=== PATIENT | female | born 1995 | race Caucasian/White ===

== ENCOUNTER 2017-10-28 08:24 | Emergency (ER) | payer OTHER ==
[2017-10-28 08:38] VITALS: BP 131/60; PULSE 85; TEMP 98; BMI 46.0
--- NOTE | 2017-10-28 09:46 | PDOC ---
History of Present Illness - General Chief Complaint: Rectal Bleed Stated Complaint: RECTAL BLEEDING Time Seen by Provider: 10/28/17 09:11 History Source: Patient Exam Limitations: No Limitations - History of Present Illness Initial Comments: 10/28/17 09:33 Patient is a 22F with history of prior gonorrhea infection here today complaining of rectal bleeding and pelvic pain. She states that the rectal pain started after shaving several days ago. She states that the pain is worse with defecation and that she had bright red blood in the toilet bowl this morning, which prompted her to come in to the ED. Patient states that she has also had white vaginal discharge for the past two days with some pelvic pain. Denies abdominal pain. Denies pain with urination. Denies fevers, chills, nausea and vomiting. Past History - Past Medical History Allergies/Adverse Reactions: Allergies Allergy/AdvReac Type Severity Reaction Status Date / Time No Known Allergies Allergy Verified 10/28/17 08:35 - Suicide/Smoking/Psychosocial Hx Smoking History: Never smoked Review of Systems - Review of Systems Able to Perform ROS?: Yes Comments:: 10/28/17 10:07 GENERAL/CONSTITUTIONAL: No fever or chills. No weakness. HEAD, EYES, EARS, NOSE AND THROAT: No change in vision. No sore throat. CARDIOVASCULAR: No chest pain or shortness of breath RESPIRATORY: No cough, wheezing, or hemoptysis. GASTROINTESTINAL: No nausea, vomiting, diarrhea or constipation. GENITOURINARY: No dysuria, frequency, or change in urination. Positive for vaginal discharge and pelvic pain. MUSCULOSKELETAL: No joint or muscle swelling or pain. No neck or back pain. SKIN: No rash NEUROLOGIC: No headache, vertigo, loss of consciousness, or change in strength/ sensation. HEMATOLOGIC/LYMPHATIC: No anemia, easy bleeding, or history of blood clots. ALLERGIC/IMMUNOLOGIC: No hives or skin allergy *Physical Exam - Vital Signs Last Vital Signs Temp Pulse Resp BP Pulse Ox 98 F 85 18 131/60 100 10/28/17 08:35 10/28/17 08:35 10/28/17 08:35 10/28/17 08:35 10/28/17 08:35 - Physical Exam Comments: 10/28/17 10:07 GENERAL: Awake, alert, and fully oriented, in no acute distress HEAD: No signs of trauma, normocephalic, atraumatic EYES: PERRLA, EOMI, sclera anicteric, conjunctiva clear ENT: Auricles normal inspection, hearing grossly normal, nares patent, oropharynx clear without exudates. Moist mucosa NECK: Normal ROM, supple, no lymphadenopathy, JVD, or masses LUNGS: No distress, speaks full sentences, clear to auscultation bilaterally HEART: Regular rate and rhythm, normal S1 and S2, no murmurs, rubs or gallops, peripheral pulses normal and equal bilaterally. ABDOMEN: Soft, nontender, normoactive bowel sounds. No guarding, no rebound. No masses EXTREMITIES: Normal inspection, Normal range of motion, no edema. No clubbing or cyanosis. NEUROLOGICAL: Cranial nerves II through XII grossly intact. Normal speech, normal gait, no focal sensorimotor deficits SKIN: Warm, Dry, normal turgor, no rashes or lesions noted. PELVIC: Normal external genitalia, white cottage cheese discharge, no CMT, no adnexal masses RECTAL: Linear abrasion at 12 o'clock, tender, no masses or stool, positive for small amount of bright red blood Moderate Sedation - Procedure Monitoring Vital Signs: Vital Signs Temp Pulse Resp BP Pulse Ox 98 F 85 18 131/60 100 10/28/17 08:35 10/28/17 08:35 10/28/17 08:35 10/28/17 08:35 10/28/17 08:35 Medical Decision Making - Medical Decision Making 10/28/17 11:28 Patient is 22F with history of gonorrhea here today with yeast infection. Also working up for UTI and . G/C tests sent. Nontender abdominal exam, no cva tenderness. Will treat yeast infection with fluconazole. Rectal bleeding is due to abrasion. Will recommend fiber supplementation, sitz bath, improved bowel habits and stool softener. UA/Upreg pending. 10/28/17 12:38 Laboratory Tests 10/28/17 11:45 Ur Leukocyte Esterase 1+ H Urine WBC (Auto) 17 Urine HCG, Qual Negative UA positive, upreg negative. Will discharge home with return precautions. *DC/Admit/Observation/Transfer Diagnosis at time of Disposition: Yeast infection involving the vagina and surrounding area, Anal fissure - Discharge Dispostion Disposition: HOME Condition at time of disposition: Good Decision to Admit order: No - Referrals Referrals: Roland Joyce MD [Primary Care Provider] - - Patient Instructions Printed Discharge Instructions: DI for Rectal Bleeding, DI for Vaginal Yeast Infection Additional Instructions: Please return if you have any new, worsening or concerning symptoms. You were prescribed an antibiotic today. Please take your next dose tonight. Please take the entire prescription even if you feel better. Please follow up with your primary care provider in the next week. - Post Discharge Activity
[2017-10-28] MEDS ORDERED: ACETAMINOPHEN 325 MG TABLET (FP) PO ONE (10:43)
--- NOTE | 2017-10-28 11:23 | PDOC ---
Attending Attestation - Resident Resident Name: Jerry Smith - ED Attending Attestation I have performed the following: I have examined & evaluated the patient, The case was reviewed & discussed with the resident, I agree w/resident's findings & plan, Exceptions are as noted - HPI HPI: 10/28/17 11:19 22-year-old female patient with history of gonorrhea, obesity presents with pelvic pain and some rectal bleeding. The patient reported several days ago of developing some whitish discharge and some skin irritation. Patient reports be sexually active one partner. Reports dysuria but denies any fevers or abdominal pain. Patient does not think she is . Today she noted that when she was moving her bowels that she had felt like a tearing sensation and had some blood in the toilet bowl. But denies any nausea or vomiting or fevers. Denies sick contacts or recent travels. - Physicial Exam PE: 10/28/17 11:20 GENERAL: Awake, alert, and fully oriented, in no acute distress. HEAD: No signs of trauma EYES: PERRLA, EOMI, sclera anicteric, conjunctiva clear ENT: Auricles normal inspection, hearing grossly normal, nares patent NECK: Normal ROM, supple ABDOMEN: Soft, nontender. No guarding, no rebound. No masses [employer]ATOR: cottage cheese discharge c/w yeast infection RECTAL: as per resident EXTREMITIES: Normal range of motion, no edema. No clubbing or cyanosis. No cords, erythema, or tenderness NEUROLOGICAL: Cranial nerves II through XII grossly intact. Normal speech, normal gait SKIN: Warm, Dry, normal turgor, no rashes or lesions noted. - Medical Decision Making 10/28/17 11:22 Vital Signs Temp Pulse Resp BP Pulse Ox 98 F 85 18 131/60 100 10/28/17 08:35 10/28/17 08:35 10/28/17 08:35 10/28/17 08:35 10/28/17 08:35 22-year-old female patient with pelvic pain and dysuria. We'll need to rule out urinary tract infection. Patient also with the yeast infection. We'll need Diflucan. Rectal exam as per resident suggests anal fissure. Diet control and stool softeners. 10/28/17 12:47 Urine Test Results Urine Color Yellow 10/28/17 11:45 Urine Appearance Slcloudy 10/28/17 11:45 Urine pH 5.0 (5.0-8.0) 10/28/17 11:45 Ur Specific [place] 1.028 (1.001-1.035) 10/28/17 11:45 Urine Protein Negative (NEGATIVE) 10/28/17 11:45 Urine Glucose (UA) Negative (NEGATIVE) 10/28/17 11:45 Urine Ketones Negative (NEGATIVE) 10/28/17 11:45 Urine Blood 1+ (NEGATIVE) H 10/28/17 11:45 Urine Nitrite Negative (NEGATIVE) 10/28/17 11:45 Urine Bilirubin Negative (<2.0 mg/dL) 10/28/17 11:45 Ur Leukocyte Esterase 1+ (NEGATIVE) H 10/28/17 11:45 Ur Epithelial Cells Rare /HPF (FEW) 10/28/17 11:45 Urine Bacteria Rare /hpf (NONE SEEN) 10/28/17 11:45 Urine Mucus Rare 10/28/17 11:45 UA positive. Will treat as UTI and yeast infection.
[2017-10-28 12:01] LABS: HCG,QUALITATIVE URINE NEGATIVE
[2017-10-28 12:04] LABS: URINE APPEARANCE SLCLOUDY; URINE BILIRUBIN NEGATIVE (<2.0 mg/dL); URINE BLOOD 1+ (NEGATIVE); URINE COLOR YELLOW; URINE GLUCOSE (UA) NEGATIVE (NEGATIVE); URINE KETONE NEGATIVE (NEGATIVE); URINE NITRITE NEGATIVE (NEGATIVE); URINE PROTEIN NEGATIVE (NEGATIVE); URINE UROBILINOGEN NEGATIVE mg/dL (0.2-1.0)
[2017-10-28 12:07] LABS: URINE LEUK ESTERASE 1+ (NEGATIVE)
[2017-10-28 12:10] LABS: CALCIUM OXALATE CRYSTALS RARE /hpf (NONE SEEN); EPI CELLS RARE /HPF (FEW); URINE BACTERIA RARE /hpf (NONE SEEN); URINE MUCUS RARE
[2017-10-28] MEDS ORDERED: FLUCONAZOLE 50 MG TABLET PO ONE (12:42)
[2017-10-28] MEDS ORDERED: CEPHALEXIN MONOHYDRATE 500 MG CAPSULE (UD) PO ONE (12:42)
[2017-10-28] MEDS ORDERED: CEPHALEXIN MONOHYDRATE 500 MG CAPSULE (UD) ONE (13:31)
[2017-10-28] MEDS ORDERED: FLUCONAZOLE 100 MG TABLET (UD) PO ONE (13:33)
[2017-10-28] MEDS ORDERED: FLUCONAZOLE 100 MG TABLET (UD) ONE (13:34)
== END 2017-10-28 13:43 | disposition home or self-care (01) ==
LOC: JER 08:24
DX: B37.3 Candidiasis of vulva and vagina (principal); K60.2 Anal fissure, unspecified; Z86.19 Personal history of other infectious and parasitic diseases
CPT/HCPCS: 36415; 81003; 81015; 82272; 84703; 87086; 87491; 87591; 99281-25